=== PATIENT | male | born 1960 | race African-American/Black ===

== ENCOUNTER 2022-12-01 17:24 | Inpatient (IN) | payer OTHER ==
[~2022-12-01] VITALS: Ht 175.3 cm; Wt 74.8 kg
[2022-12-01 17:30] VITALS: BP_SYST 141
--- NOTE | 2022-12-01 17:35 | NUR ---
RECEIVED PT FROM LUIS MCGREGOR. PT BIBA ACLS FOR C/O LEFT UPPER CHEST TENDERNESS AND INTERMITTENT PAIN. PT HAS LEFT UPPER CHEST PACEMAKER IN PLACED. PT IS AAOX4. ON R/A. EKG BEING OBTAINED AT THIS TIME. DENIES N/V/D/C. DISTAL PULSES NORMAL, SKIN WARM, CDI, NO EDEMA NOTED. SIDRAILS UP X2.
--- NOTE | 2022-12-01 17:36 | NUR ---
DR. ARTEAGA AT BEDSIDE TO ASSESS PT.
--- NOTE | 2022-12-01 17:58 | NUR ---
EKG COMPLETED, CXR OBTAINED, BLOOD OBTAINED AND TAKEN TO LAB.
[2022-12-01 18:12] LABS: BASOPHILS # (AUTO) 0.1 K/uL (0.0-0.2); EOSINOPHILS # (AUTO) 0.1 K/uL (0.0-0.4); EOSINOPHILS % (AUTO) 2.1 % (0.0-4.0); HEMATOCRIT 35.4 % (36-54); HEMOGLOBIN 11.9 g/dL (14.0-18.0); LYMPHOCYTES # (AUTO) 0.7 K/uL (1.0-5.5); MEAN CORPUSCULAR HEMOGLOBIN 31 pg (27-31); MEAN CORPUSCULAR HGB CONC 34 % (32-36); MEAN CORPUSCULAR VOLUME 94 fL (79.0-98.0); MONOCYTES # (AUTO) 0.3 K/uL (0.0-1.0); MONOCYTES % (AUTO) 11.9 % (1.7-9.3); NEUTROPHILS # (AUTO) 1.6 K/uL (1.8-7.7); PLATELET COUNT (AUTO) 205 K/uL (130-430); RED BLOOD CELL COUNT(AUTO) 3.79 MIL/uL (4.2-6.2); RED CELL DISTRIBUTION WIDTH 17.5 % (9.0-15.0); WHITE BLOOD COUNT (AUTO) 2.7 K/uL (4.8-10.8)
[2022-12-01 18:30] LABS: ALANINE AMINOTRANSFERASE 21 U/L (12-78); ALBUMIN 2.9 g/dL (3.4-4.8); ANION GAP 9 (5-15); ASPARTATE AMINOTRANSFERASE 49 U/L (10-37); CALCIUM 9.6 mg/dL (8.4-11.0); CHLORIDE 104 mmol/L (98-107); GFR AFRICAN AMERICAN 126 mL/min (>90); GLUCOSE 89 mg/dL (70-99); TOTAL BILIRUBIN 0.3 mg/dL (0.0-1.0); UREA NITROGEN, BLOOD 10 mg/dL (8-21)
--- NOTE | 2022-12-01 18:44 | NUR ---
COVIS TEST COLLECTED AND SENT TO LAB
[2022-12-01] MEDS ORDERED: LISI-209 PO (19:06)
[2022-12-01] MEDS ORDERED: DOCU-144 PO (19:06)
[2022-12-01] MEDS ORDERED: RIVA10TA PO (19:06)
[2022-12-01] MEDS ORDERED: TRAZ-250 PO (19:06)
[2022-12-01] MEDS ORDERED: ASPI-1393 PO (19:06)
[2022-12-01] MEDS ORDERED: OMEP40CA20 PO (19:06)
--- NOTE | 2022-12-01 19:14 | NUR ---
ENDORSED PT TO MECHE PETERSON. ALL QUESTIONS AND CONCERNS ADDRESSED.
[2022-12-01] MEDS ORDERED: ASPIRIN 325 MG TABLET (ECOTRIN) PO ONE (20:00)
--- NOTE | 2022-12-01 20:14 | NUR ---
Admit bed requested Patient will be admitted to care of . Admitted to TELEMETRY unit. Diagnosis DEFIBRILLATOR DYSFUNCTION Inpatient (Yes or No) Y Observation (Yes or No) N Orientation concerns or request close to nursing station (Yes or No) N Covid Status NEG On vent or bipap N Isolation requirements N Needs a sitter N From Home (Yes or if No enter name of facility) Y Requires Dialysis (Yes or No) N Med Rec Completed (Yes of No) Y
[2022-12-01] MEDS ORDERED: MORPHINE 2 MG/ML INJ. SYRINGE IVP ONE (20:15)
--- NOTE | 2022-12-01 20:50 | NUR ---
ADMISSION NOTE Received patient from ER via gurney. Patient admitted with diagnosis of Defibrillator Dysfunction. Patient is awake, alert, oriented X 4. Patient oriented to hospital room, call light, toileting, pain management and safety-teach back done. Patient informed that I (Hannah) will be his nurse and that his room number is 130-A.Discussed poc,all safety measures, to use call light if experiencing any chest pain,pain,sob,or any acute distress, pt verbalized understanding. Saline nader of LFA #20 patent, no s/s any infiltration after flushed w/ NS drsg cdi. Confirmed with another nurse pt's name,, MRN, telemetry box number prior places telemetry box on pt. Pt has his own walker at bedside. Personal belongings checked and Belongings List documented. Call light within reach, side rails x2. Fall precaution in place. Cont to monitor pt.
[2022-12-01 21:00] VITALS: BP_SYST 117
--- NOTE | 2022-12-01 21:38 | NUR ---
NOTES; CRITICAL LAB---ELEVATED TROPONIN 5050,[place] DR. ANTHONY -Pt is denies any chest pain,pain,sob,or any acute distress. Pt is sitting on bed eating sandwich. Informed pt to call nurse if experiencing chest pain,pain,sob,or any acute distress, pt verbalized understanding. A monitor show SR with pacing. call light /win reach. Cont to monitor pt.
--- NOTE | 2022-12-01 21:41 | NUR ---
CONSULTATION PAGED/CALLED Reason for Consultation: defibrillator malfunction /elevated troponin Person Who was Notified: sigrid Consulting Physician: dr. beckwith Electrical Inspector Specialty: rewind operator Ordering Physician: dr voss
[2022-12-01 21:50] VITALS: BP_SYST 117
--- NOTE | 2022-12-01 22:29 | NUR ---
NOTES; NOTIFED DR. ANTHONY REGARDING CRITICAL TROPONIN 5050 AND PT IS ASYMPTOMATIC -TROPONIN IN AM PER MD.
--- NOTE | 2022-12-01 23:21 | NUR ---
NOTES; DR. CERONIUM INFORMED AND AWARED OF CRITICAL TROPONIN [address] ANTHONY ORDERED TROPONIN IN AM ALREADY, NO FURTHER ORDER PER MD THIS TIME.
[2022-12-02 00:32] VITALS: BP_SYST 124
--- NOTE | 2022-12-02 00:32 | NUR ---
NOTES; -Pt awakes, resting in bed comfortably. Pt denies any chest pain,pain,sob,or any acute distress. All safety measures in place. Call light w/in reach. Cont to monitor pt.
--- NOTE | 2022-12-02 06:16 | NUR ---
PAGED DR. ANTHONY REGARDING CRITICAL OPJKOOCE=[phone]. WAITING FOR MD TO RETURN CALLBACK.
--- NOTE | 2022-12-02 06:28 | NUR ---
NOTES; INFORMED DR. MCNULTY REGARDING CRITICAL OBSEZWQD=[id number]; -Informed Dr. Mcnulty also pt is c/o left chest pain 7/10 sore throbbing not spreading anywhere, vs 161/92,20,100% r/a, 63. MD ordered 12 leads EKG stat and Morphine Sulfate 2mg IVP q 4 hrs prn severe pain. will carry out orders.
[2022-12-02] MEDS: MORPHINE 2 MG/ML INJ. SYRINGE IVP PRN ×3 (06:45→22:49)
[2022-12-02] MEDS ORDERED: NALOXONE HCL 0.4 MG/ML AMP (NARCAN) IVP PRN (06:45)
--- NOTE | 2022-12-02 06:45 | NUR ---
CLOSING NOTES; -Pt is c/o left chest pain 8/10 throbbing, gave Morphine 2mg IVP. All safety measures in place. IV site patent no s/s any infiltration noted. Bed alarmed, side rails x2, Call light w/in reach. Will endorse to next nurse to cont care.
[2022-12-02 07:30] VITALS: BP_SYST 155
--- NOTE | 2022-12-02 07:30 | NUR ---
Opening Notes Patient laying in bed, resting while watching TV. A/O x 4, Ghanaian speaking. Patient Breathing even and unlabored on RA. Patient states that he is having chest pain level 8, let him know I will check his chart and see when the last time he was given pain meds, no distress, no SOB. Patient is on a cardiac diet. Patient has LFA 20G SL. Patient has BRP with the assistants of his walker. Bed is locked in lowest position. Call light within reach, all needs met, will continue with plan of care.
[2022-12-02] MEDS ORDERED: OMEPRAZOLE Non-Formulary 20 MG CAPSULE.DR PO SCH (09:00)
[2022-12-02] MEDS: traZODone HCL 50 MG TABLET (DESYREL) PO SCH (09:39)
[2022-12-02] MEDS: DOCUSATE SODIUM 100 MG CAPSULE PO SCH ×2 (09:39→22:39)
[2022-12-02] MEDS: lisinopriL 5 MG TABLET PO SCH (09:40)
[2022-12-02] MEDS: PANTOPRAZOLE SODIUM 40 MG TAB PO SCH (09:41)
[2022-12-02] MEDS: ASPIRIN 81 MG TABLET(ECOTRIN) PO SCH (09:42)
[2022-12-02] MEDS: RIVAROXABAN 10 MG TABLET PO SCH (09:42)
--- NOTE | 2022-12-02 12:00 | NUR ---
Noon Notes Patient laying in bed, resting while watching TV waiting for lunch. Patient Breathing even and unlabored on RA. no pain, no distress, no SOB. Bed is locked in lowest position. Call light within reach, all needs met, will continue with plan of care.
[2022-12-02 12:06] VITALS: BP_SYST 149
[2022-12-02 13:15] LABS: BARBITURATE, URINE NEGATIVE (NEG <=200); BENZODIAZEPINE, URINE NEGATIVE (NEG <=150); CANNABINOID, URINE POSITIVE (NEG <=50); COCAINE, URINE NEGATIVE (NEG <=150); METHAMPHETAMINES SCREEN,URINE NEGATIVE (NEG <=500); OPIATE, URINE POSITIVE (NEG <=100); PHENCYCLIDINE SCREEN,URINE NEGATIVE (NEG <=25); UR TRICYCLIC ANTIDEPRESSANTS NEGATIVE (NEG <=300); URINE AMPHETAMINE NEGATIVE (NEG <=500); URINE METHADONE NEGATIVE (NEG <=200); URINE OXYCODONE SCREEN NEGATIVE (NEG <=100); URINE PROPOXYPHENE SCREEN NEGATIVE (NEG <=300)
--- NOTE | 2022-12-02 15:40 | NUR ---
Tack Cutter assessment In to see patient this afternoon to discuss his living condition. Per patient, her couch surfs between his sister's home in [place], his children's home on [place], a few friends, and local motels. The patient states his sister is not allowed to have overnight guests longer then 5 nights in a row. The patient has a rolator walker and a cane. He is independent with his care needs and uses public transportation to get around. He does not have a Power of Core Inspector. His PCP is Dr. Cordoba in [place]. The discharge plan is to go to his sister's home in [place]. The patient was advised that at time of discharge, he will be assessed for appropriate needs and services. The patient is in agreement to the discharge plan. At time of discharge, the patient states his sister will pick him up, but he may need a ride to the bus stop in [place] that will get him to [place]. I advised the patient that he is welcome to request an uber transport from the nurse to get to the bus station that will take him to [place]. Prior to leaving the room, I reviewed the patient's demographic information with him. He made the necessary corrections. I advised the patient that I will submit the corrections for his facesheet to the admitting department.
[2022-12-02 16:27] VITALS: BP_SYST 139
--- NOTE | 2022-12-02 16:33 | NUR ---
Notes Patient laying in bed, resting while watching TV. Patient Breathing even and unlabored on RA. no pain, no distress, no SOB. Bed is locked in lowest position. Call light within reach, all needs met, will continue with plan of care.
[2022-12-02 19:40] VITALS: BP_SYST 130
--- NOTE | 2022-12-02 19:40 | NUR ---
PM ASSESSMENT; Patient is awake, alert, oriented X 4. Patient oriented to hospital room, call light, toileting, pain management and safety-teach back done. Pt denies any chest pain,pain,sob,or any acute distress this time. Discussed poc,all safety measures, to use call light if experiencing any chest pain,pain,sob,or any acute distress, pt verbalized understanding. Saline nader of LFA #20 patent, no s/s any infiltration after flushed w/ NS drsg cdi. Call light within reach, side rails x2. Fall precaution in place. Cont to monitor pt.
--- NOTE | 2022-12-02 20:23 | NUR ---
NOTES; Dr. Mcnulty called to have the person who comes to check pt's defibrillator to talk to MD before he will leave. - Dr. Mcnulty said that he called this defibrillator person at 1400 to come by. Still waiting for arrival
--- NOTE | 2022-12-02 21:33 | NUR ---
NOTES; PAGED LONI HOLLIDAYLES [phone] REGARDING DEFIBRILLATOR, NO ANSWER, LEFT MESSAGE, WAITING FOR CALLBACK Addendum: 12/03/22 at 0256 by [facility] Mayra Pérez RN RN ADDITIONAL NOTES; CORRECTION NUMBER IS [phone]
--- NOTE | 2022-12-02 22:12 | NUR ---
NOTES; 2ND PAGED LONI TAN [phone] REGARDING DEFIBRILLATOR, NO ANSWER, LEFT MESSAGE, WAITING FOR CALLBACK Addendum: 12/03/22 at 0257 by [facility] Mayra Pérez RN RN CORRECTION; NUMBER IS [phone]
--- NOTE | 2022-12-02 22:29 | NUR ---
NOTES; PAGED DR. ANTHONY REGARDING UDPATE OF DEFIBRILLATOR PERSON IS NOT CALLBACK AFTER X2 ATTEMPTED. WAITING FOR MD TO RETURN CALLBACK.
--- NOTE | 2022-12-02 22:34 | NUR ---
NOTES; DR. ANTHONY -NOTIFIED DR. ANTHONY REGARDING LONI - DEFIBRILLATOR PERSON IS NOT CALLBACK AFTER X2 ATTEMPTED. STATED, "IT'S OKAY. HE MAY SHOW UP TOMORROW. " NO FURTHER ORDER PER .
[2022-12-03] VITALS: BP_SYST 133
--- NOTE | 2022-12-03 01:00 | NUR ---
ROUNDS; -Pt is resting in bed comfortably. NO s/s any acute distress noted. Pt's condition stable. Endorsed to [facility] Nurse to continuity of care.
--- NOTE | 2022-12-03 01:05 | NUR ---
TRANSFER OF CARE Received report from Hannah. Pt is lying in bed, eyes closed. Breathing even and unlabored. Fall and safety checks in place with bed in lowest position, bed alarm on, and call light within reach
--- NOTE | 2022-12-03 06:33 | NUR ---
CALLED LONI TAN (FOR PT'S DEFIBRILLATOR) at [phone] to see what time he will be here to check the pt's defibrillator. No answer, left voicemail. Waiting call back
[2022-12-03] MEDS: MORPHINE 2 MG/ML INJ. SYRINGE IVP PRN ×2 (06:52→18:27)
--- NOTE | 2022-12-03 06:59 | NUR ---
CLOSING NOTE Pt is awake lying in bed. No s/s of respiratory distress. Breathing even and unlabored on RA. IV site intact and patent saline lock. Administered PRN pain medication. Still no callback from Rishi Nesbitt, to endorse to day shift. All needs met throughout shift. Fall and safety precautions in place with bed in lowest position, bed alarm on, and call light within reach
[2022-12-03 07:24] LABS: HEMOGLOBIN 12.8 g/dL (14.0-18.0); NEUTROPHILS # (AUTO) 1.7 K/uL (1.8-7.7); WHITE BLOOD COUNT (AUTO) 3.2 K/uL (4.8-10.8)
[2022-12-03 07:40] VITALS: BP_SYST 154
[2022-12-03 07:40] LABS: CALCIUM 10.5 mg/dL (8.4-11.0); CREATININE 0.69 mg/dL (0.55-1.30)
--- NOTE | 2022-12-03 07:40 | NUR ---
Opening notes Patient laying in bed, resting while watching TV while waiting for breakfast. A/O x 4, Swedish speaking. Patient Breathing even and unlabored on RA. No pain, no distress, no SOB. Patient is on a cardiac diet. Patient has LFA 20G SL. Patient has BRP with the assistants of his walker. Bed is locked in lowest position. Call light within reach, all needs met, will continue with plan of care.
[2022-12-03 07:52] LABS: THYROID STIMULATING HORMONE 1.52 uIu/mL (0.34-4.82); TOTAL BILIRUBIN 0.8 mg/dL (0.0-1.0)
[2022-12-03] MEDS: lisinopriL 5 MG TABLET PO SCH (08:15)
[2022-12-03] MEDS: DOCUSATE SODIUM 100 MG CAPSULE PO SCH ×2 (08:15→21:39)
[2022-12-03] MEDS: ASPIRIN 81 MG TABLET(ECOTRIN) PO SCH (08:16)
[2022-12-03] MEDS: PANTOPRAZOLE SODIUM 40 MG TAB PO SCH (08:16)
[2022-12-03] MEDS: traZODone HCL 50 MG TABLET (DESYREL) PO SCH (08:16)
[2022-12-03] MEDS: RIVAROXABAN 10 MG TABLET PO SCH (08:19)
[2022-12-03 08:52] LABS: BASOPHILS % (AUTO) 1.2 % (0.0-2.0); EOSINOPHILS # (AUTO) 0.1 K/uL (0.0-0.4); EOSINOPHILS % (AUTO) 2.8 % (0.0-4.0); HEMATOCRIT 38.7 % (36-54); LYMPHOCYTES # (AUTO) 0.7 K/uL (1.0-5.5); LYMPHOCYTES % (AUTO) 21.7 % (20.5-51.5); MEAN CORPUSCULAR HEMOGLOBIN 31 pg (27-31); MEAN CORPUSCULAR HGB CONC 33 % (32-36); MEAN CORPUSCULAR VOLUME 94 fL (79.0-98.0); MONOCYTES # (AUTO) 0.7 K/uL (0.0-1.0); MONOCYTES % (AUTO) 20.9 % (1.7-9.3); NEUTROPHILS % (AUTO) 53.4 % (40.0-70.0); PLATELET COUNT (AUTO) 210 K/uL (130-430); RED BLOOD CELL COUNT(AUTO) 4.14 MIL/uL (4.2-6.2)
--- NOTE | 2022-12-03 11:13 | NUR ---
Spoke w/ Dr Mcnulty, patient can F/U with [facility] as an out patient for revision of his pacemaker/defibrillator, there is no need for an inpatient transfer.
[2022-12-03 11:58] VITALS: BP_SYST 120
--- NOTE | 2022-12-03 12:00 | NUR ---
Noon notes Patient laying in bed, resting while watching TV. Bed is locked in lowest position. Call light within reach, all needs met, will continue with plan of care.
[2022-12-03 15:58] VITALS: BP_SYST 125
--- NOTE | 2022-12-03 18:25 | NUR ---
Closing notes Patient laying in bed, resting while watching TV. A/O x 4, Montenegrin speaking. Patient Breathing even and unlabored on RA. No pain, no distress, no SOB. Patient is on a cardiac/LoCHOL/ LO fat diet. Patient has LFA 20G SL. Patient has BRP with the assistants of his walker. Bed is locked in lowest position. Call light within reach, all needs met, will endorse to building construction ironworker nurse.
--- NOTE | 2022-12-03 23:26 | NUR ---
pt AOX4, HE IS AMBULATORY , NO COMPLAIN OF CHEST PAIN OR SHORTNESS OF BREATH. COMFORT MEASURES ARE PROVIDED. CALLLIGHT IS WITHIN REACH . BED IS LOW POSITION. NO SIGNS OF DISTRESS
[2022-12-04 00:33] VITALS: BP_SYST 108
[2022-12-04 06:17] VITALS: BP_SYST 112
--- NOTE | 2022-12-04 07:35 | NUR ---
INITIAL NOTE: Received Patient sitting up in bed. Awake, alert, oriented x 4. Good historian of his reason for being here. Patient denies pain. No c/o SOB. No signs of acute distress noted. Lungs clear, all lobes. No edema noted. 20 gauge IV to left forearm. Skin is intact. Bed in low, locked position. Call light & personal items within reach.
[2022-12-04 08:00] VITALS: BP_SYST 122
[2022-12-04] MEDS: traZODone HCL 50 MG TABLET (DESYREL) PO SCH (08:10)
[2022-12-04] MEDS: ASPIRIN 81 MG TABLET(ECOTRIN) PO SCH (08:10)
[2022-12-04] MEDS: PANTOPRAZOLE SODIUM 40 MG TAB PO SCH (08:11)
[2022-12-04] MEDS: lisinopriL 5 MG TABLET PO SCH (08:11)
[2022-12-04] MEDS: DOCUSATE SODIUM 100 MG CAPSULE PO SCH (08:11)
[2022-12-04] MEDS: RIVAROXABAN 10 MG TABLET PO SCH (08:19)
--- NOTE | 2022-12-04 10:00 | NUR ---
Patient resting comfortably in bed. Patient ate 100% of breakfast. Due AM medications were administered as ordered. Tolerated well. IV flushed with NS, patent. No c/o pain. No signs of distress noted. Bed in low, locked position. Call light & personal items within reach.
[2022-12-04] MEDS ORDERED: METOPROLOL SUCCINATE 50 MG TAB.SR.24H (TOPROL XL) PO ONE (11:00)
--- NOTE | 2022-12-04 11:00 | NUR ---
Patient vitals taken. BP low, 104/82. Held BP meds. No c/o dizziness. No s/s of acute distress noted.
[2022-12-04 12:00] VITALS: BP_SYST 104
--- NOTE | 2022-12-04 13:00 | NUR ---
Patient ate 100% of lunch. No c/o pain. No signs of distress noted. Vitals WNL. Bed in low, locked position. Call light & personal items within reach.
--- NOTE | 2022-12-04 14:13 | NUR ---
Patient to follow up with [facility] out patient cardiology. He can call or [phone] for an appointment
[2022-12-04 16:00] VITALS: BP_SYST 144
[2022-12-04 16:12] VITALS: BP_SYST 146
--- NOTE | 2022-12-04 17:30 | NUR ---
Reviewed discharge paperwork with Patient, including follow up phone numbers for [facility], inventory list and easy to read information on medications to continue at home. Patient voiced understanding. Patient signed facility copy & was provided with his own copies of all documents. Patient IV was removed & site covered with clean, dry dressing. Patient was taken outside in wheelchair by licensed nurse, accompanied by his sister, who pushed his personal 4 wheel walker. Patient was assisted into sister's vehicle and applied seatbelt. Patient expressed thanks to all staff at [facility].
[2022-12-05] MEDS ORDERED: METOPROLOL SUCCINATE 50 MG TAB.SR.24H (TOPROL XL) PO SCH (09:00)
== END 2022-12-04 17:30 | disposition home or self-care (01) | DRG 203 ==
LOC: SED 17:24 → STU 20:12
PROVIDERS: ADMIT Family Medicine; ATTEND Family Medicine
PROC: 4B02XTZ Measurement of Cardiac Defibrillator, External Approach (ICD-10-PCS; principal; 2022-12-03)
DX: M94.0 Chondrocostal junction syndrome [Tietze] (principal); E44.1 Mild protein-calorie malnutrition; I42.1 Obstructive hypertrophic cardiomyopathy; I50.9 Heart failure, unspecified; I11.0 Hypertensive heart disease with heart failure; I25.10 Atherosclerotic heart disease of native coronary artery without angina pectoris; Z20.822 Contact with and (suspected) exposure to COVID-19; F17.200 Nicotine dependence, unspecified, uncomplicated; I49.9 Cardiac arrhythmia, unspecified; D64.9 Anemia, unspecified; Z79.82 Long term (current) use of aspirin; Z79.01 Long term (current) use of anticoagulants; Z95.810 Presence of automatic (implantable) cardiac defibrillator; Z79.899 Other long term (current) drug therapy; Z68.24 Body mass index [BMI] 24.0-24.9, adult
CPT/HCPCS: 36415; 71045; 80053; 80061; 80307; 82550; 83735; 83880; 84443; 84484; 85025; 93005; 93306; 99285; G0378; J2270